=== PATIENT | female | born 2000 | race Caucasian/White ===

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

== ENCOUNTER 2019-05-13 18:09 | Emergency (ER) | payer OTHER ==
[~2019-05-13] VITALS: Ht 167.6 cm; Wt 70.2 kg
[2019-05-13 18:55] VITALS: BP 132/82
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
--- NOTE | 2019-05-13 20:22 | NUR ---
GIVEN DC INSTRUCTION PT UNDERSTOOD PT UP AMBULATED TO CHECK OUT GIVEN IMAGING RESULT FOR FOLLOW UP WITH PCP
== END 2019-05-13 20:24 | disposition home or self-care (01) ==
LOC: ED 20:00
DX: S39.012A Strain of muscle, fascia and tendon of lower back, initial encounter (principal); G89.11 Acute pain due to trauma; J45.909 Unspecified asthma, uncomplicated; V43.62XA Car passenger injured in collision with other type car in traffic accident, initial encounter; Y93.89 Activity, other specified; Y92.488 Other paved roadways as the place of occurrence of the external cause; Y99.8 Other external cause status
CPT/HCPCS: 72072; 99283